=== PATIENT | female | born 1950 | race Caucasian/White ===

== ENCOUNTER → 2017-05-27 10:15 | Outpatient (CLI) | payer MEDICARE, OTHER | END | disposition home or self-care (01) | LOC: D.RAD 10:15 | DX: R13.10 Dysphagia, unspecified (principal) ==

== ENCOUNTER 2018-07-08 11:23 | Day surgery (SDC) | payer MEDICARE, OTHER ==
[~2018-07-08] VITALS: Ht 165.1 cm; Wt 95.3 kg
--- NOTE | ~2018-07-08 | OP ---
PATIENT NAME: ISABEL MCNEAL MEDICAL RECORD: [id number] :54 LOCATION:[facility] ADMISSION DATE: SURGEON: KRISSY PALACIOS MD DATE OF OPERATION: 07/08/2018 PROCEDURE: EGD with balloon dilatation, EGD with biopsy. SCOPE: An Olympus video gastroscope and a CRE Microvasive balloon from 45 to 60 [place]. MEDICATIONS: Per TIVA anesthesia. The patient has obstructive sleep apnea, hypertension, kidney problems. She received 200 mg of propofol for this procedure, O2 4 liters. HISTORY AND PHYSICAL: Mrs. Mcneal is a very pleasant 68-year-old lady who is presenting for an EGD. She has had symptoms of distal esophageal stricture for both solids and liquids. She has had dysphagia in the past and has gone to [facility] for workup looking for the presence of achalasia. We will review the reports in their entirety. We scoped Mrs. Mcneal on 05/22/2017 and the procedure was significant for a very tight stricture in the gastroesophageal junction, which was dilated successfully during the procedure to 60-[place]izen [place]. She also was felt to have distal esophageal spasm. Hiatal hernia was observed as well as erosive gastritis and duodenitis. The patient after the procedure was placed on Zantac at 150 mg at bedtime and Dexilant 60 mg every morning. She was asked to follow reflux precautions stringently and was provided literature on the subject. She will have an EGD this date. FINDINGS: Informed consent was given. The patient was made comfortable with the above medications. After reaching an adequate level of sedation by slow IV push, the patient was placed on her left side. The endoscope was then advanced under direct visualization through the posterior pharyngeal area and advanced to the distal esophagus. At this area, a tight Schatzki's ring was appreciated. Photo documentation was obtained and a CRE Microvasive balloon was placed in this area carefully adjusted so that the hiatal hernia was taken into consideration and the balloon was inflated to 60-[place]izen [place], held in place for 1 minute without complication. The patient had a fairly good result with the balloon dilatation and photo documentation was obtained. Only mild inflammation was seen in the distal esophageal area and biopsies were taken. We then advanced the scope through a small hiatal hernia, which was seen both on direct and retroflex views. With advancement of the scope, the patient had some streaking from the antral area and a few small erosions, no ulcers were appreciated. A biopsy for Helicobacter pylori and histopathology was taken at this area. The duodenal bulb to the second portion had mild inflammation present. No ulcers, no erosions. Biopsies were taken. The scope was then withdrawn. IMPRESSION: 1. Distal esophageal stricture dilated to 60-[place]izen [place] without complication. It should be noted that the patient actively refluxed during this procedure and may benefit from an antireflux procedure such as a Miya fundoplication. 2. Mild distal esophagitis, biopsied. 3. Small hiatal hernia. 4. Erosive gastritis. No ulcers or erosions. 5. Mild duodenitis, biopsy taken in the second part of the duodenum. OPERATIVE REPORT [id number] ISABEL MCNEAL PLAN: 1. The patient to follow reflux precautions stringently, both dietary and positional. She should avoid if bothersome chocolate, tomato, citrus, caffeine, fatty foods, peppermint, not eat late at night, sit up for at least 2 hours after every meal, sleep with the head of the bed elevated to take advantage of the gravity and no eating past 5 or 6 p.m. No alcohol, no tobacco products. 2. Caution with anti-inflammatory drugs. 3. Continue Dexilant at 60 mg p.o. every day and increase Zantac to 300 mg p.o. at bedtime. TRANSINT:[id number] Voice Confirmation ID: [id number] DOCUMENT ID: [id number] CC: Argelia Malone APN, [facility] KRISSY PALACIOS MD at 1319 CC: ARGELIA MALONE APN [id number] DICTATION DATE: 07/08/18 1411 BELT BUILDER: 07/08/18 1452 [facility] 07/08/18 [place] [id number]
[2018-07-08 12:03] LABS: BASOPHILS 0.4 % (0-2); EOSINOPHILS 2.8 % (0-7); HEMATOCRIT 39.5 % (36.0-48.0); HEMOGLOBIN 12.9 g/dL (12-16); IMMATURE GRANULOCYTES 0.2 % (0-5); LYMPHOCYTES 15.4 % (15-50); MCHC 32.7 g/dL (31.0-37.0); MCV 88.8 fL (80.0-100.0); MEAN PLATELET VOLUME 9.2 fL (7.4-10.4); MONOCYTES 8.6 % (2-11); NEUTROPHILS 72.6 % (40-80); PLATELET COUNT 216 10x3/uL (130-400); RBC 4.45 10x6/uL (4.00-5.40); RDW 14.7 % (11.5-14.5); WBC 5.3 10x3/uL (4.8-10.8)
[2018-07-08 12:10] LABS: ANION GAP 11.2 mmol/L (8-16); CALCIUM 9.2 mg/dL (8.5-10.1); CARBON DIOXIDE 30.2 mmol/L (21.0-32.0); CREATININE - SERUM 0.9 mg/dL (0.6-1.3); POTASSIUM - SERUM 4.4 mmol/L (3.5-5.1)
[2018-07-08 12:11] LABS: APTT 26.6 SECONDS (22.8-39.4); INR 1.08 (0.85-1.17); PROTIME 13.6 SECONDS (11.6-15.0)
[2018-07-08] MEDS ORDERED: FOLIC ACID1 MG PO (12:24)
[2018-07-08] MEDS ORDERED: MONOPRIL10 MG PO (12:25)
[2018-07-08] MEDS ORDERED: LINZESS290 MCG PO (12:26)
[2018-07-08] MEDS ORDERED: DEXILANT30 MG PO (12:26)
[2018-07-08] MEDS ORDERED: TOPROL XL50 MG PO (12:27)
[2018-07-08] MEDS ORDERED: SYNTHROID25 MCG PO (12:27)
[2018-07-08] MEDS ORDERED: ULTRAM50 MG PO (12:28)
[2018-07-08] MEDS ORDERED: COUMADIN3 MG PO (12:29)
[2018-07-08] MEDS ORDERED: COUMADIN5 MG PO (12:30)
[2018-07-08] MEDS ORDERED: CALAN SR180 MG PO (12:30)
[2018-07-08] MEDS ORDERED: TRICOR145 MG PO (12:31)
[2018-07-08] MEDS ORDERED: HCTZ25 MG PO (12:32)
[2018-07-08] MEDS ORDERED: ALAVERT10 MG/TAB PO (12:32)
[2018-07-08] MEDS ORDERED: CRESTOR20 MG PO (12:33)
[2018-07-08 12:46] VITALS: BP 147/77; Ht 165.1 cm; Wt 95.3 kg
[2018-07-08] MEDS ORDERED: ZANTAC300 MG PO (14:57)
== END 2018-07-08 15:05 | disposition home or self-care (01) ==
LOC: D.OPS 11:23
PROVIDERS: Anesthesiology
DX: K22.2 Esophageal obstruction (principal); K29.70 Gastritis, unspecified, without bleeding; K21.0 Gastro-esophageal reflux disease with esophagitis

== ENCOUNTER 2018-08-19 10:33 | Day surgery (SDC) | payer MEDICARE, OTHER ==
[~2018-08-19] VITALS: Ht 165.1 cm; Wt 90.9 kg
--- NOTE | ~2018-08-19 | OP ---
PATIENT NAME: ISABEL DEVINE MEDICAL RECORD: [id number] :54 LOCATION:[facility] ADMISSION DATE: SURGEON: JAYLEEN CONRAD MD DATE OF OPERATION: 08/19/2018 PROCEDURE: Colonoscopy with polyp ablation. MANUFA[employer]URING PLANT MANAGER: Jayleen Conrad MD SCOPE: Olympus video colonoscope. MEDICATIONS: Per TIVA. The patient received 350 mg of propofol IV push for this procedure and O2 at 4 liters. INDICATION FOR THE PROCEDURE: History of colon polyps, irritable bowel syndrome with constipation, hematochezia, and change in bowel pattern. FINDINGS: Informed consent was given. The patient was made comfortable with the above medications. After reaching an adequate level of sedation by slow IV push, the patient was placed on her left side. The rectal exam revealed good sphincter tone. No fissures or fistulas were appreciated. No external skin tags were seen. The colonoscope was then advanced to the cecum, where the ileocecal valve and appendiceal orifice were identified. On withdrawal of the scope, mucosa was carefully inspected. The patient was noted to have moderate left-sided diverticulosis without diverticulitis. Within the rectal vault and on retroflexion, the patient was seen to have a 0.5-cm distal rectal polyp, which was ablated. Also noted were internal and external hemorrhoids which are the cause of the patient's hematochezia. No colitis was seen. The patient's procedure was technically difficult in some areas secondary to adhesions due to her previous abdominal surgeries and also due to spasm associated with irritable bowel syndrome. The scope was then withdrawn. IMPRESSION: 1. Normal cecum. 2. Moderate left-sided diverticulosis without diverticulitis. 3. Distal rectal polyp, 0.5 cm in size, ablated. 4. Internal and external hemorrhoids, which are the cause of the patient's occasional hematochezia. 5. Adhesions in the pelvic area adding to the difficulty of this procedure. 6. Spasm associated with irritable bowel syndrome. PLAN: 1. No anti-inflammatory drugs for 14 days. 2. High-fiber diet. 3. Return to clinic on a p.r.n. basis. 4. For constipation, the patient should take daily Colace as well as a daily dose of MiraLAX. TRANSINT:[id number] Voice Confirmation ID: [id number] DOCUMENT ID: [id number] OPERATIVE REPORT [id number] ISABEL DEVINE BRENDA MD at 1215 CC: [id number] DICTATION DATE: 08/19/18 1345 MASSOTHERAPIST: 08/19/18 1357 [facility] 08/19/18 [place] [id number] [place] [id number]
[~2018-08-19 10:33] MED LIST: ALAVERT10 MG/TAB PO; CALAN SR180 MG PO; COUMADIN3 MG PO; COUMADIN5 MG PO; CRESTOR20 MG PO; DEXILANT30 MG PO; FOLIC ACID1 MG PO; HCTZ25 MG PO; LINZESS290 MCG PO; MONOPRIL10 MG PO; SYNTHROID25 MCG PO; TOPROL XL50 MG PO; TRICOR145 MG PO; ULTRAM50 MG PO; ZANTAC300 MG PO
[2018-08-19 10:52] LABS: MCH 28.9 pg (26.0-34.0); MCHC 33.3 g/dL (31.0-37.0); MCV 86.7 fL (80.0-100.0); RBC 4.5 10x6/uL (4.00-5.40); WBC 4.5 10x3/uL (4.8-10.8)
[2018-08-19] MEDS ORDERED: XARELTO10 MG PO (12:44)
[2018-08-19 12:53] VITALS: Ht 165.1 cm; Wt 90.9 kg
== END 2018-08-19 14:45 | disposition home or self-care (01) ==
LOC: D.OPS 10:33
PROVIDERS: Anesthesiology
DX: K57.30 Diverticulosis of large intestine without perforation or abscess without bleeding (principal); K62.1 Rectal polyp; K64.8 Other hemorrhoids; K64.4 Residual hemorrhoidal skin tags; N73.6 Female pelvic peritoneal adhesions (postinfective); K58.1 Irritable bowel syndrome with constipation; Z01.812 Encounter for preprocedural laboratory examination; Z86.010 Personal history of colon polyps

== ENCOUNTER 2020-06-06 06:05 | Day surgery (SDC) | payer MEDICARE, OTHER ==
[~2020-06-06] VITALS: Ht 165.1 cm; Wt 95.9 kg
[~2020-06-06 06:05] MED LIST changes: +XARELTO10 MG PO
[2020-06-06 06:53] LABS: APTT 27.7 SECONDS (22.8-39.4); INR 1.01 (0.85-1.17); PROTIME 13.3 SECONDS (11.6-15.0)
[2020-06-06 07:10] LABS: BASOPHILS 0.3 % (0-2); HEMATOCRIT 39.8 % (36.0-48.0); HEMOGLOBIN 12.7 g/dL (12-16); IMMATURE GRANULOCYTES 0.9 % (0-5); LYMPHOCYTES 19.9 % (15-50); MCH 29.1 pg (26.0-34.0); MCHC 31.9 g/dL (31.0-37.0); MCV 91.1 fL (80.0-100.0); MEAN PLATELET VOLUME 9.4 fL (7.4-10.4); MONOCYTES 10.1 % (2-11); NEUTROPHILS 64.8 % (40-80); RBC 4.37 10x6/uL (4.00-5.40); RDW 14.5 % (11.5-14.5); WBC 3.5 10x3/uL (4.8-10.8)
[2020-06-06 07:11] LABS: PLATELET COUNT 218 10x3/uL (130-400)
[2020-06-06] MEDS ORDERED: PEPCID AC20 MG PO (07:29)
[2020-06-06] MEDS ORDERED: PROTONIX40 MG PO (07:29)
[2020-06-06] MEDS ORDERED: OSCIMIN0.125 M1 PO (07:31)
[2020-06-06 07:34] VITALS: BP 131/73; Ht 165.1 cm; Wt 95.9 kg
--- NOTE | 2020-06-06 09:22 | NUR ---
0900 IV DC'D. CATHETER TIP INTACT. PRESSURE HELD UNTIL BLEEDING STOPPED. BANDAID APPLIED. 0910 PT READY FOR DISCHARGE HOME AND VOICES UNDERSTANDING OF DISCHARGE INSTRUCTIONS REVIEWED WITH HER EARLIER.
--- NOTE | 2020-06-07 06:47 | OP ---
PATIENT NAME: ISABEL DEVINE MEDICAL RECORD: [id number] :54 [facility] DATE: SURGEON: FRACISCO HUMPHREYS DO DATE OF OPERATION: 06/06/2020 PROCEDURE: EGD with biopsies and balloon dilation. INDICATIONS FOR PROCEDURE: Dysphagia, heartburn, epigastric pain, nausea and vomiting. SCOPE: Olympus video gastroscope. MEDICATIONS: Propofol 180 mg IV per anesthesia. ESTIMATED BLOOD LOSS: Minimal. COMPLICATIONS: None. FINDINGS: Informed consent was given. The patient was made comfortable with the above medication. After reaching an adequate level of sedation by slow IV push, the patient was placed on her left side. The endoscope was advanced under direct visualization through the mouth to the second portion of the duodenum with ease. The upper and middle esophagus appeared normal. In the distal third of the esophagus, there was a stricture that was nonobstructing. It was dilated using a 16-18 mm balloon with a maximum diameter of 16 mm. At the GE junction, there were changes consistent with [place] class A reflux-induced esophagitis. The endoscope was advanced beyond the GE junction into the stomach and retroflexed to view the cardia and fundus. There was a small sliding hiatal hernia. There were no associated ulcerations. The fundus and proximal body of the stomach appeared normal. There were scattered fundic gland polyps located throughout the fundus and body of the stomach. Cold forceps biopsies were taken of one of these polyps to confirm their benign nature. In the antrum and prepyloric region, there were areas of streaky erythema and friability consistent with mild chronic gastritis. Cold forceps biopsies were taken to submit for histopathology. The endoscope was advanced beyond the pylorus in the duodenum, which appeared normal to the second portion. Cold forceps biopsies were taken to submit for histopathology. The endoscope was withdrawn from the patient. The patient tolerated the procedure well and there were no complications. IMPRESSION: 1. Esophageal stricture located in the distal esophagus, status post dilation to 16 mm. 2. LA class A reflux-induced esophagitis. 3. Small sliding hiatal hernia. 4. Mild chronic gastritis. 5. Benign fundic gland gastric polyps. PLAN AND RECOMMENDATIONS: 1. Discharge home when recovery parameters are met. 2. Follow up biopsy specimen results. 3. GERD diet and reflux precautions. 4. Continue current medications. 5. Consider fundoplication of hiatal hernia for severe uncontrolled reflux. 6. Repeat EGD as needed for dysphagia. OPERATIVE REPORT [id number] ISABEL DEVINE TRANSINT:[id number] Voice Confirmation ID: [id number] DOCUMENT ID: [id number] FRACISCO HUMPHREYS DO at 0647 CC: [id number] DICTATION DATE: 06/06/20821 HOUSE WORKER: 06/06/201929 [facility] 06/06/20 [facility] [address] [place] [id number]
== END 2020-06-06 09:10 | disposition home or self-care (01) ==
LOC: D.OPS 06:05
PROVIDERS: Anesthesiology; ATTEND Internal Medicine Gastroenterology
DX: R13.10 Dysphagia, unspecified (principal); R10.13 Epigastric pain; R11.2 Nausea with vomiting, unspecified; K21.0 Gastro-esophageal reflux disease with esophagitis